=== PATIENT | female | born 1970 | race Caucasian/White ===

== ENCOUNTER 2024-01-03 14:15 | Emergency (ER) | payer MEDICARE, SELFPAY ==
[2024-01-03 14:21] VITALS: BP 138/98
[2024-01-03 15:09] VITALS: BP 111/72
--- NOTE | 2024-01-03 15:20 | ED.GENMED ---
History of Present Illness
General
Chief Complaint: Heart Rate Problem
Source: patient
Exam Limitations: none
Time Seen by Provider: 01/03/24 15:11
Nursing documentation reviewed up to this point in time: agreed with
Travel History
Have you had any contact with someone who has COVID-19?: No
Do you have any symptoms of coronavirus? Fever > 100 degrees, chills, cough, shortness of breath, sore throat, loss of taste or smell, muscle aches, or headache?: No
History of Present Illness
History of Present Illness:
Patient is a 53-year-old female who presents to the ER for evaluation. Patient reports she was at work around 1 PM and is having intermittent sensation of palpitations and fluttering sensation in her chest for about half hour and then she developed
heaviness in her upper chest by her clavicle area and felt short of breath. She report both of her arms felt heavy. 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
very low. She is a smoker. She has no other past medical history. She is presently asymptomatic. She has significant cardiac history, brother had [facility] at age 43. She did see cardiology here Dr. Mackenzie and Dr. Mcgarry. years ago
Past History
Past History
ED Past Medical History: CHF, Psychiatric (panic anxiety syndrome,), Other (RLS, spinal stenosis, rheumatoid arthritis, PNA), Other (toxic shock syndrome, osteoarthritis, suggested CSF leak in 2012) and Other (orthostatic hypotension)
ED Past Surgical History: Cardiac (Linq long-term monitor worker implanted), Cholecystectomy, Gynecological (D&C), Orthopedic (8 Back surgery, Scoliosis, Rods and Fusion), Tonsilectomy and Other (Sinus surgery times 2)
Patient has exhibited threatening behavior?: No
PSI?: No
Social History
Tobacco: Smoker
Alcohol: None
Drug: None
Personal:
Living: with family
Employment: Other
Family History
Family History: Other (Reviewed and Noncontributory)
Review of Systems
Review of Systems
Allergies reviewed?: Yes
All Other Systems: ROS reviewed and negative except as documented in HPI and ROS
Constitutional: Reports no symptoms
Respiratory: Reports no symptoms
Cardiac: Reports no symptoms
ABD/GI: Reports no symptoms
: Reports no symptoms
Musculoskeletal: Reports no symptoms
Skin: Reports no symptoms
Neurological: Reports no symptoms
Hematologic/Lymphatic: Reports no symptoms
Psychiatric: Reports no symptoms
Phy Exam
General Physical Exam
General Presentation: no apparent distress
General age: appears stated age
General Skin: warm and dry
General Habitus: normal
General Mental: alert
General Hydration: appears well hydrated
Cardiovascular Exam
Cardiovascular Exam: regular rate/rhythm
Pulmonary Exam
Pulmonary Exam: lungs clear and no respiratory distress
Course
Orders/Labs/Results
Orders:
Orders
01/03/24 14:16
Electrocardiogram (*1) Urgent
Reason for Study: Palpitations
EKG- Treatment ONCE
01/03/24 15:21
CBC/With Diff [Complete Blood Count/With Diff] Urgent
CMP [Comprehensive Metabolic Panel] Urgent
01/03/24 15:34
Add On- LAB Urgent
Tests Added?: troponin
Chest [CR Chest - 2 Views ] Urgent
Comment:
Reason For Exam: cp
01/03/24 15:44
DDimer [D-Dimer] Urgent
01/03/24 16:12
Troponin I Urgent
Comment: MUST BE COLLECTED - NO ADD ON
01/03/24 16:59
EKG- Treatment ONCE
Abnormal Lab Results
01/03/24
15:21
MCH 31.2 H pg
(27.0-31.0)
01/03/24 15:21
04/25/24 15:21
Vital Signs
Initial and Last Documented VS:
Initial Vital Signs
Temp Pulse Resp BP Pulse Ox
97.6 F 87 18 138/98 98
01/03/24 14:21 01/03/24 14:21 01/03/24 14:21 01/03/24 14:21 01/03/24 14:21
Last Documented Vital Signs
Temp Pulse Resp BP Pulse Ox
97.6 F 64 21 111/77 98
01/03/24 14:21 01/03/24 17:45 01/03/24 17:45 01/03/24 17:22 01/03/24 17:45
MDM/Problems Addressed
Differential Diagnosis Includes:
Not limited to unstable angina, arrhythmia
MDM/Problems Addressed:
Patient is a 53-year-old female with history of smoking presents to the ER for evaluation. Patient was at work and had intermittent palpitations fluttering sensation and then chest pressure collarbone discomfort some shortness of breath. She
presented here awake alert no acute distress symptoms had resolved. Initial cardiac troponin is normal there are no acute findings on EKG and no acute findings on chest x-ray. D-dimer negative. Will keep for second troponin and if negative plan
to discharge home with outpatient cardiology chest pain hotline patient may also need Holter monitor for further evaluation of fluttering/palpitations.
1800: Nurse and now reports that patient does not want to stay for second cardiac troponin as recommended. I did speak with her and with her history of smoking and family history I did recommend this. She wants to go home. I will place patient on
the chest pain hotline. She however has been asymptomatic.
*Radiology
Radiology exam reviewed: radiology read reviewed
*Pulse Oximetry
Patient hypoxic: no
*EKG
Interpreted by ED Provider?: Yes
Comparison EKG: no changes
Heart Rate: 73
Rate: normal
Rhythm: sinus
Ischemia: no ischemia
*Critical Care Note
Total Time (30-74mins, 75-104mins- exclusive of procedures): Not Applicable
ED Attending Note
-
Portions of this chart may have been created with voice recognition software.� Occasional wrong word or��sound alike� substitutions may have occurred due to the inherent limitations of voice recognition software.
Discharge Plan
Departure
Patient Disposition: Home (Routine Discharge)
Date of Disposition: 01/03/24
Time of Disposition: 17:59
Patient with high blood pressure during this ER visit?: Yes
Condition: Fair
Covid-19: Not Applicable
Discharge Problem:
Chest pain
Instructions: Chest Pain DCA Follow Up, BLOOD PRESSURE
Prescriptions:
No Action
pramipexole [Mirapex] 1.5 MG tablet
3 tab PO HS
benzonatate 100 mg capsule
100 mg PO TID PRN (Reason: Cough) Qty: 20 0RF
Referrals:
Paulie Mcgarry DO [Active] -
Jan Durham MD [Family Provider] -
Activity Restrictions/Additional Instructions:
As discussed you are recommended to have a second cardiac enzyme blood test and repeat EKG but did not want to . If you have any worsening of symptoms including chest pain shortness of breath nausea sweating or any further concerns please return to
the ER. Follow-up with cardiology. You are placed on the cardiology hotline which means you should receive a phone call in the next several days however if you do not please give them a call to schedule an appointment soon as possible. You may
need additional testing including holter monitor.
Interventions
Interventions:
*Risk Screen - Suicide Last Done: 01/03/24 14:21
*General Assessment Last Done: 01/03/24 14:21
*Neglect/Abuse Screening Last Done: 01/03/24 14:21
ED- Fall Risk Assessment Last Done: 01/03/24 15:30
*ED COVID-19 Vaccine History Last Done: 01/03/24 14:21
*Nursing Disposition Last Done: 01/03/24 18:09
ED- Cardiac Assessment Last Done: 01/03/24 15:30
ED- Pulmonary Assessment Last Done: 01/03/24 15:30
Discharge Date and Time
Discharge Date/Time: 01/03/24 18:11
Print Language: FRISIAN
[2024-01-03 15:38] LABS: % Basophils 0.5 % (0-2); % Eosinophils 1.1 % (0-6); % Immature Granulocytes 0.2 % (0-0.5); % Lymphocytes 32.5 % (20.5-51.1); % Monocytes 5.3 % (1.7-9.3); % Neutrophils 60.4 % (42.2-75.2); Absolute Eosinophils 0.1 10^3/uL (0-0.7); Absolute Monocytes 0.3 10^3/uL (0.1-0.6); Absolute Neutrophils 3.8 10^3/uL (1.4-6.5); Hematocrit 39.5 % (37.0-47.0); Hemoglobin 13.9 g/dL (12.0-16.0); Mean Corp Hgb Conc. 35.2 g/dL (33.0-37.0); Mean Corpuscular Hgb 31.2 pg (27.0-31.0); Mean Corpuscular Volume 88.6 fL (81.0-99.0); Nucleated Red Blood Cells % 0 %; Platelet Count 245 10^3/uL (130-400); Red Blood Cell Count 4.46 10^6/uL (4.20-5.40); Red Cell Dist. Width 12.1 % (11.5-14.5); White Blood Cell Count 6.2 10^3/uL (4.8-10.8)
[2024-01-03 15:56] LABS: ALT (SGPT) 20 U/L (0-35); AST (SGOT) 25 U/L (14-36); Albumin 4.4 g/dl (3.5-5.0); Alkaline Phosphatase 81 U/L (38-126); Blood Urea Nitrogen 17 mg/dl (7-17); Calcium 9.5 mg/dl (8.4-10.2); Carbon Dioxide 27 mmol/L (22-30); Chloride 104 mmol/L (98-107); Glucose 88 mg/dl (70-99); Potassium 3.6 mmol/L (3.5-5.1); Sodium 136 mmol/L (135-145); Total Protein 6.7 g/dl (6.3-8.2); eGFR > 60.00
[2024-01-03 16:11] LABS: D-Dimer < 0.27 ug/mlFEU (0.00-0.50)
[2024-01-03 16:44] LABS: Troponin I < 0.012 ng/ml
[2024-01-03 17:22] VITALS: BP 111/77
== END 2024-01-03 18:11 | disposition home or self-care (01) ==
LOC: EMR 14:15
PROVIDERS: Nurse Practitioner; EMERGENCY PHYSICIAN Emergency Medicine; FAMILY PHYSICIAN Internal Medicine
DX: R07.89 Other chest pain (principal); R03.0 Elevated blood-pressure reading, without diagnosis of hypertension; F17.200 Nicotine dependence, unspecified, uncomplicated
CPT/HCPCS: 99285; 71046; 80053; 84484; 85025; 85379; 93005

== ENCOUNTER 2024-02-24 07:52 | Emergency (ER) | payer MEDICARE, OTHER, SELFPAY ==
[2024-02-24 07:58] VITALS: BP 129/95
--- NOTE | 2024-02-24 09:25 | ED.MUSCINJ ---
HPI-Injury
General
Chief Complaint: Musculo-Skeletal Complaint
Time Seen by Provider: 02/24/24 09:03
Travel History
Have you had any contact with someone who has COVID-19?: No
Do you have any symptoms of coronavirus? Fever > 100 degrees, chills, cough, shortness of breath, sore throat, loss of taste or smell, muscle aches, or headache?: No
History of Present Illness-Injury
Initial Injury comments:
Patient presents to the emergency department with left hip pain. Pain is anterior worse with weightbearing. Notes that she has a baseline of uneven hips due to chronic back issues. She was lifting a heavy speaker on Sunday, yesterday she noticed
severe pain in the left hip. There is no acute injury. She complains of some weakness in the leg. There is no back pain or radiating pain shooting down the leg. She has no saddle anesthesia or incontinence. There are no fevers or chills.
Past History
Past History
ED Past Medical History: CHF, Psychiatric (panic anxiety syndrome,), Other (RLS, spinal stenosis, rheumatoid arthritis, PNA), Other (toxic shock syndrome, osteoarthritis, suggested CSF leak in 2012) and Other (orthostatic hypotension)
ED Past Surgical History: Cardiac (Linq long-term water valve repairer implanted), Cholecystectomy, Gynecological (D&C), Orthopedic (8 Back surgery, Scoliosis, Rods and Fusion), Tonsilectomy and Other (Sinus surgery times 2)
Patient has exhibited threatening behavior?: No
PSI?: No
Social History
Tobacco: Smoker
Alcohol: None
Drug: None
Personal:
Living: with family
Employment: Other
Family History
Family History: Other (Reviewed and Noncontributory)
Phy Exam
Physical Exam
Physical Exam:
General: No acute distress
Head: NCAT
Neck, Normal in appearance, no swelling
Respiratory: No Respiratory distress
Abdomen: No distension
Back/ext: No back tenderness. Full range of motion of lower extremities. There is no swelling in the lower extremities or visible abnormality. She has pain with range of motion of the left hip. There is diminished strength in the hip flexors on
the left. Sensation is intact throughout. She has good distal pulses. 5 out of 5 plantarflexion and dorsiflexion and knee extension.
Neuro: BARRETT, AOx4
Psych: Normal affect
Skin: Normal color
Injury Course
Orders/Labs/Results
Orders:
Orders
02/24/24 08:02
Hip, Left 2-3 Views [CR Hip - LT w/wo Pel 2-3 Vw*] Urgent
Comment:
Reason For Exam: pain
Include a pelvis x-ray?: Yes
02/24/24 09:28
Naproxen [Naprosyn] 500 mg PO NOW STA
*Critical Care Note
Total Time (30-74mins, 75-104mins- exclusive of procedures): Not Applicable
ED Attending Note
ED Attending Note
ED Attending Note:
Patient with left hip pain after carrying a heavy load. She is neurovascularly intact but does have some weakness to hip flexion on the left suspect there is a component of pain contributing to this. Do not suspect radiculopathy given lack of back
pain or radicular symptoms. Will treat symptomatically, obtain x-rays and reassess.
Patient ambulating without difficulty. Requesting discharge prior to x-ray read. I instructed that I would call her with results.
Updated patient on results, mild osteoarthritis, no fracture
all questions answered
-
Portions of this chart may have been created with voice recognition software.� Occasional wrong word or��sound alike� substitutions may have occurred due to the inherent limitations of voice recognition software.
Discharge Plan
Departure
Patient Disposition: Home (Routine Discharge)
Date of Disposition: 02/24/24
Time of Disposition: 11:17
Patient with high blood pressure during this ER visit?: No
Discharge Problem:
Acute hip pain
Instructions: Hip Pain ED
Prescriptions:
No Action
pramipexole [Mirapex] 1.5 MG tablet
3 tab PO HS
benzonatate 100 mg capsule
100 mg PO TID PRN (Reason: Cough) Qty: 20 0RF
Referrals:
Jan Durham MD [Family Provider] -
Fuad Figueroa MD [Active] -
Activity Restrictions/Additional Instructions:
please follow up with your orthopedist for evaluation
return to ER with new or worsening symptoms
Interventions
Interventions:
*ED COVID-19 Vaccine History Last Done: 02/24/24 07:58
Discharge Date and Time
Print Language: SERBIAN
[2024-02-24] MEDS: NAPROSYN 500 MG PO (10:24)
== END 2024-02-24 11:35 | disposition home or self-care (01) ==
LOC: EMR 07:52
PROVIDERS: EMERGENCY PHYSICIAN Emergency Medicine; FAMILY PHYSICIAN Internal Medicine
DX: M25.552 Pain in left hip (principal); M62.81 Muscle weakness (generalized); X50.0XXA Overexertion from strenuous movement or load, initial encounter; I50.9 Heart failure, unspecified; G25.81 Restless legs syndrome; M48.00 Spinal stenosis, site unspecified; M06.9 Rheumatoid arthritis, unspecified; M41.9 Scoliosis, unspecified; F17.200 Nicotine dependence, unspecified, uncomplicated; Z90.49 Acquired absence of other specified parts of digestive tract; Z98.1 Arthrodesis status; Z88.1 Allergy status to other antibiotic agents; Z88.5 Allergy status to narcotic agent; Z88.8 Allergy status to other drugs, medicaments and biological substances
CPT/HCPCS: 99283; 73502

== ENCOUNTER 2024-04-11 13:44 | Emergency (ER) | payer SELFPAY ==
[2024-04-11 13:48] VITALS: BP 124/84
[2024-04-11 14:01] VITALS: BP 120/75
[2024-04-11 14:03] VITALS: BMI 23.9
--- NOTE | 2024-04-11 14:49 | ED.SKININJ ---
HPI-Injury
General
Chief Complaint: Skin Surface Trauma
Source: patient
Exam Limitations: none
Time Seen by Provider: 04/11/24 14:35
Nursing documentation reviewed up to this point in time: agreed with
History of Present Illness-Injury
Initial Injury comments:
53-year-old female with history of IBS, GERD, anemia, anxiety, numerous orthopedic surgeries for her back and neck presents stating she rescued a cat from a storm drain last night, that it gave order, it was acting normally seemed scared and at 1
point he pawed at her right forearm causing 2 punctures from his nails. Today the two areas are locally red, pt denies pain, fever/chill, denies n/v. Feels well otherwise. A friend told her to come here because 'that can get reallyl bad.'
Past History
Past History
ED Past Medical History: CHF, Psychiatric (panic anxiety syndrome,), Other (RLS, spinal stenosis, rheumatoid arthritis, PNA), Other (toxic shock syndrome, osteoarthritis, suggested CSF leak in 2012) and Other (orthostatic hypotension)
ED Past Surgical History: Cardiac (Linq long-term night monitor implanted), Cholecystectomy, Gynecological (D&C), Orthopedic (8 Back surgery, Scoliosis, Rods and Fusion), Tonsilectomy and Other (Sinus surgery times 2)
Patient has exhibited threatening behavior?: No
PSI?: No
Social History
Tobacco: Smoker
Alcohol: None
Drug: None
Personal:
Living: with family
Employment: Other
Family History
Family History: Other (Reviewed and Noncontributory)
Review of Systems
Review of Systems
Allergies reviewed?: Yes
All Other Systems: ROS reviewed and negative except as documented in HPI and ROS
Constitutional: Denies fever or chills
Musculoskeletal: Reports neck pain (chronic) and back pain (chronic)
Skin: Reports other (2 punctures anterior aspect right forearm from cat's nails)
Phy Exam
Physical Exam
Physical Exam:
PHYSICAL EXAMINATION:
General: no apparent distress, not acutely ill
Neuro: alert and oriented.
Psychiatric: well kept. interactive and cooperative
Musculoskeletal: Moves with ease
Skin: Warm, pink. 2 punctures anterior aspect of right forearm with 5 mm local surrounding erythema. No drainage, no lymphangitis, non tender.
Course
Orders/Labs/Results
Orders:
Orders
04/11/24 14:02
Electrocardiogram (*1) Urgent
Reason for Study: Other
Other Reason for Exam: palpitations
04/11/24 14:03
EKG- Treatment ONCE
04/11/24 14:48
Tetanus/Diphth/Acelpertussis [Adacel] 0.5 ml IM .ONCE ONE
Vital Signs
Initial and Last Documented VS:
Initial Vital Signs
Temp Pulse Resp BP Pulse Ox
98.1 F 76 17 124/84 99
04/11/24 13:48 04/11/24 13:48 04/11/24 13:48 04/11/24 13:48 04/11/24 13:48
Last Documented Vital Signs
Temp Pulse Resp BP Pulse Ox
98.1 F 70 15 120/75 99
04/11/24 13:48 04/11/24 14:01 04/11/24 14:01 04/11/24 14:01 04/11/24 14:01
MDM/Problems Addressed
MDM/Problems Addressed:
53-year-old female with history of IBS, GERD, anemia, anxiety, numerous orthopedic surgeries for her back and neck presents stating she rescued a cat from a storm drain last night, that it gave order, it was acting normally seemed scared and at 1
point he pawed at her right forearm causing 2 punctures from his nails. Today the two areas are locally red, pt denies pain, fever/chill, denies n/v. Feels well otherwise. A friend told her to come here because 'that can get really bad.'
Took cat to vet to see if chipped but it wasn't.
No sign of cellulitis or infection
Plan: will give written rx for Augmentin, discussed reasons to start the antibiotic
Cat is in cage at pt's home, has been acting normally and and will be observed for next 10 days. No indication for rabies immunization at this time
*Critical Care Note
Total Time (30-74mins, 75-104mins- exclusive of procedures): Not Applicable
ED Attending Note
-
Portions of this chart may have been created with voice recognition software.� Occasional wrong word or��sound alike� substitutions may have occurred due to the inherent limitations of voice recognition software.
Discharge Plan
Departure
Patient Disposition: Home (Routine Discharge)
Date of Disposition: 04/11/24
Time of Disposition: 15:08
Patient with high blood pressure during this ER visit?: No
Condition: Good
Discharge Problem:
Cat scratch of right forearm, Puncture wound of right forearm
Instructions: Puncture Wound
Prescriptions:
New
amoxicillin-pot clavulanate 875-125 mg tablet
1 tab PO BID Qty: 14 0RF
No Action
pramipexole [Mirapex] 1.5 MG tablet
3 tab PO HS
benzonatate 100 mg capsule
100 mg PO TID PRN (Reason: Cough) Qty: 20 0RF
Referrals:
Jan Durham MD [Family Provider] - As needed
Activity Restrictions/Additional Instructions:
As we discussed, start the antibiotic if you notice increasing redness, swelling, pain, pus drainage, red streak up the arm.
Be sure the cat is observed over the next 10 days and if he is alive and well at that time there is no need for rabies immunization.
Return here immediately for rabies immunization if the cat appears sick or does not survive the next 10 days.
Interventions
Interventions:
*Risk Screen - Suicide Last Done: 04/11/24 13:49
*General Assessment Last Done: 04/11/24 13:49
*Neglect/Abuse Screening Last Done: 04/11/24 13:49
*ED COVID-19 Vaccine History Last Done: 04/11/24 13:49
*Nursing Disposition Last Done: 04/11/24 16:00
ED-Skin Assessment Last Done: 04/11/24 14:04
Discharge Date and Time
Discharge Date/Time: 04/11/24 16:00
Print Language: CYMRO
[2024-04-11] MEDS: ADACEL 0.5 ML IM (15:43)
== END 2024-04-11 16:00 | disposition home or self-care (01) ==
LOC: EMR 13:44
PROVIDERS: EMERGENCY PHYSICIAN Student in an Organized Health Care Education/Training Program; FAMILY PHYSICIAN Internal Medicine
DX: S51.831A Puncture wound without foreign body of right forearm, initial encounter (principal); W55.03XA Scratched by cat, initial encounter; Z23 Encounter for immunization; I50.9 Heart failure, unspecified; F41.9 Anxiety disorder, unspecified; K21.9 Gastro-esophageal reflux disease without esophagitis; G25.81 Restless legs syndrome; M48.00 Spinal stenosis, site unspecified; M06.9 Rheumatoid arthritis, unspecified; M19.90 Unspecified osteoarthritis, unspecified site; K58.9 Irritable bowel syndrome, unspecified; M41.9 Scoliosis, unspecified; F17.200 Nicotine dependence, unspecified, uncomplicated; Z90.49 Acquired absence of other specified parts of digestive tract
CPT/HCPCS: 99283; 90471; 90715; 93005

== ENCOUNTER 2024-06-02 18:56 | Emergency (ER) | payer BC, SELFPAY ==
[2024-06-02 18:57] VITALS: BP 143/96
--- NOTE | 2024-06-02 19:39 | ED.GENMED ---
History of Present Illness
General
Chief Complaint: Allergic Reaction
Source: patient
Exam Limitations: none
Time Seen by Provider: 06/02/24 19:25
Nursing documentation reviewed up to this point in time: agreed with
History of Present Illness
History of Present Illness:
Patient states she ate shrimp last PM and today developed hives. SHe had a similar event 2 year ago after eating shrimp but states the hives were so bad that she was admitted to [facility] for 1 week, Brought self to ED today. has taken 3 doses of
benadryl without improvement. Denies any difficulty breathing or swallowing. No n/v
Past History
Past History
ED Past Medical History: CHF, Psychiatric (panic anxiety syndrome,), Other (RLS, spinal stenosis, rheumatoid arthritis, PNA), Other (toxic shock syndrome, osteoarthritis, suggested CSF leak in 2012) and Other (orthostatic hypotension)
ED Past Surgical History: Cardiac (Linq long-term divemaster implanted), Cholecystectomy, Gynecological (D&C), Orthopedic (8 Back surgery, Scoliosis, Rods and Fusion), Tonsilectomy and Other (Sinus surgery times 2)
Patient has exhibited threatening behavior?: No
PSI?: No
Social History
Tobacco: Smoker
Alcohol: None
Drug: None
Personal:
Living: with family
Employment: Other
Family History
Family History: Other (Reviewed and Noncontributory)
Review of Systems
Review of Systems
Allergies reviewed?: Yes
All Other Systems: ROS reviewed and negative except as documented in HPI and ROS
Constitutional: Reports no symptoms
EENT: Reports no symptoms
Respiratory: Reports no symptoms
Cardiac: Reports no symptoms
ABD/GI: Reports no symptoms
: Reports no symptoms
Musculoskeletal: Reports no symptoms
Skin: Reports other (hives to face, arms, legs)
Neurological: Reports no symptoms
Psychiatric: Reports no symptoms
Phy Exam
General Physical Exam
General Presentation: well appearing and no apparent distress
General age: appears stated age
General Skin: warm and dry
General Habitus: normal
General Mental: alert
General Hydration: appears well hydrated
ENT Exam
ENT Exam: pharynx normal
Cardiovascular Exam
Cardiovascular Exam: regular rate/rhythm and no edema
Pulmonary Exam
Pulmonary Exam: lungs clear and no respiratory distress
Musculoskeletal Exam
Musculoskeletal Exam: full ROM and no edema
Skin Exam
Skin Exam: normal color, warm/dry and other (Scattered small hives to arms, legs, face)
Psychiatric Exam
Psychiatric Exam: normal mood/affect
Course
Orders/Labs/Results
Orders:
Orders
06/02/24 19:35
Dexamethasone Pf [Decadron] 10 mg PO NOW STA
Vital Signs
Initial and Last Documented VS:
Initial Vital Signs
Temp Pulse Resp BP Pulse Ox
98.1 F 84 18 143/96 98
06/02/24 18:57 06/02/24 18:57 06/02/24 18:57 06/02/24 18:57 06/02/24 18:57
Last Documented Vital Signs
Temp Pulse Resp BP Pulse Ox
98.1 F 84 18 143/96 98
06/02/24 18:57 06/02/24 18:57 06/02/24 18:57 06/02/24 18:57 06/02/24 18:57
*Critical Care Note
Total Time (30-74mins, 75-104mins- exclusive of procedures): Not Applicable
ED Attending Note
-
Portions of this chart may have been created with voice recognition software.� Occasional wrong word or��sound alike� substitutions may have occurred due to the inherent limitations of voice recognition software.
Discharge Plan
Departure
Patient Disposition: Home (Routine Discharge)
Date of Disposition: 06/02/24
Time of Disposition: 19:36
Patient with high blood pressure during this ER visit?: No
Condition: Good
Covid-19: Not Applicable
Discharge Problem:
Shrimp allergy
Instructions: Food allergy, Hives (DC)
Prescriptions:
New
prednisone 10 mg Tablet
See Rx Instructions .ROUTE .COMPLEX Qty: 30 0RF
Rx Instructions:
Take By Mouth:
40 mg daily x3 days, 30 mg daily x3 days,
20 mg daily x3 days, 10 mg daily x3 days.
No Action
pramipexole [Mirapex] 1.5 MG tablet
3 tab PO HS
benzonatate 100 mg capsule
100 mg PO TID PRN (Reason: Cough) Qty: 20 0RF
amoxicillin-pot clavulanate 875-125 mg tablet
1 tab PO BID Qty: 14 0RF
Activity Restrictions/Additional Instructions:
Follow up with your family doctor. Return to the emergency department immediately for fever/chills, any difficulty breathing or swallowing, vomiting, or for any further concerns.
Interventions
Interventions:
*General Assessment Last Done: 06/02/24 18:57
*Neglect/Abuse Screening Last Done: 06/02/24 18:57
Discharge Date and Time
Print Language: KOREAN
[2024-06-02] MEDS: DECADRON 10 MG PO (19:56)
[2024-06-02 20:20] VITALS: BP 134/91
== END 2024-06-02 20:20 | disposition home or self-care (01) ==
LOC: EMR 18:56
PROVIDERS: EMERGENCY PHYSICIAN Emergency Medicine; FAMILY PHYSICIAN Internal Medicine
DX: L50.0 Allergic urticaria (principal); L29.9 Pruritus, unspecified; I50.9 Heart failure, unspecified; G25.81 Restless legs syndrome; M06.9 Rheumatoid arthritis, unspecified; F41.9 Anxiety disorder, unspecified; F41.0 Panic disorder [episodic paroxysmal anxiety]; M19.90 Unspecified osteoarthritis, unspecified site; K21.9 Gastro-esophageal reflux disease without esophagitis; K58.9 Irritable bowel syndrome, unspecified; F17.200 Nicotine dependence, unspecified, uncomplicated; M48.00 Spinal stenosis, site unspecified; M41.9 Scoliosis, unspecified; Z86.16 Personal history of COVID-19; Z90.49 Acquired absence of other specified parts of digestive tract; Z98.1 Arthrodesis status; Z91.013 Allergy to seafood; Z88.1 Allergy status to other antibiotic agents; Z88.5 Allergy status to narcotic agent; Z88.8 Allergy status to other drugs, medicaments and biological substances
CPT/HCPCS: 99283

== ENCOUNTER 2024-09-11 01:49 | Emergency (ER) | payer SELFPAY ==
[2024-09-11 01:52] VITALS: BP 138/80
[2024-09-11 02:21] LABS: COVID-19 Antigen Negative (Negative)
--- NOTE | 2024-09-11 05:32 | ED.GENMED ---
History of Present Illness
General
Chief Complaint: Cold/Flu/URI Symptoms
Source: patient
Exam Limitations: none
Time Seen by Provider: 09/11/24 05:19
Nursing documentation reviewed up to this point in time: agreed with
History of Present Illness
History of Present Illness:
54-year-old female presents emergency room complaining of sore throat, cough, and worse cough when she takes a deep breath. 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 She denies any chest pain.
Past History
Past History
ED Past Medical History: CHF, Psychiatric (panic anxiety syndrome,), Other (RLS, spinal stenosis, rheumatoid arthritis, PNA), Other (toxic shock syndrome, osteoarthritis, suggested CSF leak in 2012) and Other (orthostatic hypotension)
ED Past Surgical History: Cardiac ([employer] long-term cardiac specialist implanted), Cholecystectomy, Gynecological (D&C), Orthopedic (8 Back surgery, Scoliosis, Rods and Fusion), Tonsilectomy and Other (Sinus surgery times 2)
Patient has exhibited threatening behavior?: No
PSI?: No
Social History
Tobacco: Smoker
Alcohol: None
Drug: None
Personal:
Living: with family
Employment: Other
Family History
Family History: Other (Reviewed and Noncontributory)
Review of Systems
Review of Systems
Allergies reviewed?: Yes
All Other Systems: Not applicable
Constitutional: Reports no symptoms
EENT: Reports no symptoms
Respiratory: Reports cough and trouble breathing
Cardiac: Reports no symptoms
ABD/GI: Reports no symptoms
: Reports no symptoms
Musculoskeletal: Reports no symptoms
Skin: Reports no symptoms
Neurological: Reports no symptoms
Endocrine: Reports no symptoms
Hematologic/Lymphatic: Reports no symptoms
Psychiatric: Reports no symptoms
Phy Exam
Physical Exam
Physical Exam:
Physical Exam
General: no apparent distress, not acutely ill
Neck: supple. no meningeal signs. normal posterior pharynx
Heart: s1/s2 regular rate and rhythm, no murmur. equal radial
pulses.
HEENT: Pupils equal round reactive to light, EOMI
Lungs: no acute respiratory distress. clear bilaterally, cough
Abdomen: normal bowel sounds. not tender. no CVAT
Neuro: alert and oriented. no focal neurological deficits cranial nerves II through XII intact
Skin: no rash
Psychiatric: well kept. interactive and cooperative
Extremities: no edema. no calf tenderness. negative homans. good distal pulses
Course
Orders/Labs/Results
Orders:
Orders
09/11/24 01:59
COVID-19 Antigen Urgent
Source: Nasal Swab
Influenza A+B Rapid Molecular Urgent
CHARBEL Source: Nasal Swab
Specimen Description:
Date Specimen was Collected: 09/11/24
Time Specimen was Collected: 01:56
Rapid Strep Group A Urgent
CHARBEL Source: Throat/Pharynx
Specimen Description:
Date Specimen was Collected: 09/11/24
Time Specimen was Collected: 01:56
09/11/24 04:46
Chest [CR Chest - 2 Views ] Urgent
Comment:
Reason For Exam: persistant cough and fever
09/11/24 05:32
Ipratropium/Albuterol Sulfate [Duoneb] 3 ml INH R NOW STA
Vital Signs
Initial and Last Documented VS:
Initial Vital Signs
Temp Pulse BP Pulse Ox
98.1 F 72 138/80 98
09/11/24 01:52 09/11/24 01:52 09/11/24 01:52 09/11/24 01:52
Last Documented Vital Signs
Temp Pulse BP Pulse Ox
98.1 F 72 138/80 98
09/11/24 01:52 09/11/24 01:52 09/11/24 01:52 09/11/24 01:52
MDM/Problems Addressed
Differential Diagnosis Includes:
Pneumonia, COVID, strep, flu
MDM/Problems Addressed:
54-year-old female with viral URI versus mild bronchitis. No signs of pneumonia. Normal chest x-ray. Stable for discharge. Albuterol inhaler prescribed.
*Radiology
Radiology exam reviewed: preliminary read by ED provider (Chest x-ray no acute findings)
*Pulse Oximetry
Patient hypoxic: no
*Critical Care Note
Total Time (30-74mins, 75-104mins- exclusive of procedures): Not Applicable
Data Reviewed
Further Testing Considered But Not Given:
CT chest and labs not indicated
ED Attending Note
-
Portions of this chart may have been created with voice recognition software.� Occasional wrong word or��sound alike� substitutions may have occurred due to the inherent limitations of voice recognition software.
Discharge Plan
Departure
Patient Disposition: Home (Routine Discharge)
Date of Disposition: 09/11/24
Time of Disposition: 05:35
Patient with high blood pressure during this ER visit?: Yes
Condition: Good
Discharge Problem:
Acute bronchitis
Instructions: Acute Bronchitis, Adult (DC), Viral Upper Respiratory Infection, Adult (DC), BLOOD PRESSURE
Prescriptions:
New
albuterol sulfate 90 mcg/actuation HFA aerosol inhaler
2 puff inhalation Q4H PRN (Reason: shortness of breath or wheezing) Qty: 8.5 0RF
No Action
pramipexole [Mirapex] 1.5 MG tablet
3 tab PO HS
benzonatate 100 mg capsule
100 mg PO TID PRN (Reason: Cough) Qty: 20 0RF
amoxicillin-pot clavulanate 875-125 mg tablet
1 tab PO BID Qty: 14 0RF
prednisone 10 mg Tablet
See Rx Instructions .ROUTE .COMPLEX Qty: 30 0RF
Rx Instructions:
Take By Mouth:
40 mg daily x3 days, 30 mg daily x3 days,
20 mg daily x3 days, 10 mg daily x3 days.
Interventions
Interventions:
*Risk Screen - Suicide Last Done: 09/11/24 01:52
*General Assessment Last Done: 09/11/24 01:52
*Neglect/Abuse Screening Last Done: 09/11/24 01:52
*ED COVID-19 Vaccine History Last Done: 09/11/24 01:52
Discharge Date and Time
Print Language: UKRAINIAN
[2024-09-11 05:35] VITALS: BMI 24.9
[2024-09-11 05:42] VITALS: BP 104/72
[2024-09-11] MEDS: DUONEB 3 ML INH (05:47)
[2024-09-11 06:40] VITALS: BP 106/52
== END 2024-09-11 06:40 | disposition home or self-care (01) ==
LOC: EMR 01:49
PROVIDERS: EMERGENCY PHYSICIAN Emergency Medicine; FAMILY PHYSICIAN Internal Medicine
DX: J20.9 Acute bronchitis, unspecified (principal); Z11.52 Encounter for screening for COVID-19; Z20.822 Contact with and (suspected) exposure to COVID-19; Z20.828 Contact with and (suspected) exposure to other viral communicable diseases; I50.9 Heart failure, unspecified; G25.81 Restless legs syndrome; M06.9 Rheumatoid arthritis, unspecified; F41.9 Anxiety disorder, unspecified; M48.00 Spinal stenosis, site unspecified; M41.9 Scoliosis, unspecified; K21.9 Gastro-esophageal reflux disease without esophagitis; F17.200 Nicotine dependence, unspecified, uncomplicated; K58.9 Irritable bowel syndrome, unspecified; Z98.1 Arthrodesis status; Z87.01 Personal history of pneumonia (recurrent); Z86.16 Personal history of COVID-19
CPT/HCPCS: 99283; 94640; 71046; 87070; 87502; 87811; 87880

== ENCOUNTER 2025-01-18 11:11 | Emergency (ER) | payer OTHER, SELFPAY ==
[2025-01-18 11:15] VITALS: BP 140/95
--- NOTE | 2025-01-18 12:24 | ED.GENMED ---
History of Present Illness
General
Chief Complaint: Headache
Time Seen by Provider: 01/18/25 12:06
History of Present Illness
History of Present Illness:
52 female with history of hypertension presents to the emergency department for evaluation of an intractable headache for the past month or more. Describes a right temporal pain that radiates to the right occiput, constant discomfort with no
provoking or palliating factors. No relief with [id number] medications. Denies vision changes, diplopia, neck pain, extremity paresthesias, chest pain, or shortness of breath. No night sweats or weight loss. No nausea or vomiting.
Past History
Past History
ED Past Medical History: CHF, Psychiatric (panic anxiety syndrome,), Other (RLS, spinal stenosis, rheumatoid arthritis, PNA), Other (toxic shock syndrome, osteoarthritis, suggested CSF leak in 2012) and Other (orthostatic hypotension)
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
Patient has exhibited threatening behavior?: No
PSI?: No
Social History
Tobacco: Smoker
Alcohol: None
Drug: None
Personal:
Living: with family
Employment: Other
Family History
Family History: Other (Reviewed and Noncontributory)
Review of Systems
Review of Systems
Allergies reviewed?: Yes
All Other Systems: ROS reviewed and negative except as documented in HPI and ROS
Phy Exam
Physical Exam
Physical Exam:
GEN: Well appearing, NAD, WDWN
HEENT: Oral mucosa moist, no scleral icterus, no nasal congestion. No temporal artery tenderness reproduced
Cardiac: Regular rate
Lung: No respiratory distress, no tachypnea
MSK: No gross deformity or injuries
Skin: Good color, no pallor or jaundice, no rashes
Neuro: AO x3; CN II-XII grossly intact. BUE strength 5/5 in all velazquez, sensation intact and symmetric. BLE strength 5/5 in all velazquez, sensation intact and symmetric, [id number] and [id number] normal, gait is steady
Psych: Calm, cooperative
Course
Orders/Labs/Results
Orders:
Orders
01/18/25 12:18
CT Head W/o Iv Contrast Urgent
Comment:
Reason For Exam: headache
Ketorolac [Toradol] 15 mg IV NOW STA
Magnesium Sulfate 2 Gram/50 ml [Magnesium Sulfate] 2 gram in 50 ml IV NOW
Metoclopramide [Reglan] 10 mg IV NOW STA
01/18/25 12:32
Basic Metabolic Panel Urgent
CRP [C-Reactive Protein] Urgent
Complete Blood Count/No Diff Urgent
Abnormal Lab Results
01/18/25
12:32
Chloride 108 H mmol/L
(98-107)
01/18/25 12:32
01/18/25 12:32
Vital Signs
Initial and Last Documented VS:
Initial Vital Signs
Temp Pulse Resp BP Pulse Ox
98.1 F 82 18 140/95 100
01/18/25 11:15 01/18/25 11:15 01/18/25 11:15 01/18/25 11:15 01/18/25 11:15
Last Documented Vital Signs
Temp Pulse Resp BP Pulse Ox
98.1 F 78 20 122/68 98
01/18/25 11:15 01/18/25 14:00 01/18/25 14:00 01/18/25 14:00 01/18/25 14:00
MDM/Problems Addressed
MDM/Problems Addressed:
CT of the head was obtained due to persistence of the headache lasting more than 1 month despite her lack of neurologic symptoms. CT was unremarkable. She was treated with migraine cocktail with resolution of symptoms. Further supportive care
discussed
*Critical Care Note
Total Time (30-74mins, 75-104mins- exclusive of procedures): Not Applicable
ED Attending Note
-
Portions of this chart may have been created with voice recognition software.� Occasional wrong word or��sound alike� substitutions may have occurred due to the inherent limitations of voice recognition software.
Discharge Plan
Departure
Patient Disposition: Home (Routine Discharge)
Date of Disposition: 01/18/25
Time of Disposition: 14:08
Patient with high blood pressure during this ER visit?: No
Discharge Problem:
Migraine
Instructions: Migraines (DC)
Prescriptions:
New
sumatriptan succinate [Imitrex] 50 mg tablet
50 - 100 mg PO ONCE Qty: 10 0RF
No Action
pramipexole [Mirapex] 1.5 MG tablet
3 tab PO HS
benzonatate 100 mg capsule
100 mg PO TID PRN (Reason: Cough) Qty: 20 0RF
amoxicillin-pot clavulanate 875-125 mg tablet
1 tab PO BID Qty: 14 0RF
prednisone 10 mg Tablet
See Rx Instructions .ROUTE .COMPLEX Qty: 30 0RF
Rx Instructions:
Take By Mouth:
40 mg daily x3 days, 30 mg daily x3 days,
20 mg daily x3 days, 10 mg daily x3 days.
albuterol sulfate 90 mcg/actuation HFA aerosol inhaler
2 puff inhalation Q4H PRN (Reason: shortness of breath or wheezing) Qty: 8.5 0RF
Interventions
Interventions:
*Risk Screen - Suicide Last Done: 01/18/25 11:15
*General Assessment Last Done: 01/18/25 11:15
*Neglect/Abuse Screening Last Done: 01/18/25 11:15
*Nursing Disposition Last Done: 01/18/25 14:33
ED- Neurological Assessment Last Done: 01/18/25 14:11
Discharge Date and Time
Discharge Date/Time: 01/18/25 14:34
Print Language: SURINAMESE
[2025-01-18] MEDS: TORADOL 15 MG IV (12:33)
[2025-01-18] MEDS: REGLAN 10 MG IV (12:37)
[2025-01-18] MEDS: MAGNESIUM SULFATE 50 IV (12:49)
[2025-01-18 12:50] LABS: Hematocrit 40.9 % (37.0-47.0); Hemoglobin 14.5 g/dL (12.0-16.0); Mean Corp Hgb Conc. 35.5 g/dL (33.0-37.0); Mean Corpuscular Hgb 30.9 pg (27.0-31.0); Mean Platelet Volume 9.1 fL (7.4-10.4); Platelet Count 245 10^3/uL (130-400); Red Cell Dist. Width 12.2 % (11.5-14.5)
[2025-01-18 13:02] LABS: Blood Urea Nitrogen 10 mg/dl (7-17); Calcium 8.9 mg/dl (8.4-10.2); Carbon Dioxide 28 mmol/L (22-30); Chloride 108 mmol/L (98-107); Glucose 91 mg/dl (70-99); Sodium 140 mmol/L (135-145); eGFR > 60.00
[2025-01-18 13:05] LABS: C-Reactive Protein < 5.00 mg/L (0.0-10.00)
[2025-01-18 14:00] VITALS: BP 122/68
== END 2025-01-18 14:34 | disposition home or self-care (01) ==
LOC: EMR 11:11
PROVIDERS: Physician Assistant; EMERGENCY PHYSICIAN Emergency Medicine; FAMILY PHYSICIAN Internal Medicine
DX: G43.909 Migraine, unspecified, not intractable, without status migrainosus (principal); I11.0 Hypertensive heart disease with heart failure; I50.9 Heart failure, unspecified; F41.0 Panic disorder [episodic paroxysmal anxiety]; F41.9 Anxiety disorder, unspecified; M06.9 Rheumatoid arthritis, unspecified; M41.9 Scoliosis, unspecified; A48.3 Toxic shock syndrome; G25.81 Restless legs syndrome; F17.200 Nicotine dependence, unspecified, uncomplicated; Z87.01 Personal history of pneumonia (recurrent); Z90.49 Acquired absence of other specified parts of digestive tract; Z88.7 Allergy status to serum and vaccine; Z88.8 Allergy status to other drugs, medicaments and biological substances; Z88.1 Allergy status to other antibiotic agents; Z88.5 Allergy status to narcotic agent; Z91.013 Allergy to seafood
CPT/HCPCS: 99284; 96365; 96375 ×2; 70450; 80048; 85027; 86140

== ENCOUNTER 2025-04-26 19:50 | Emergency (ER) | payer SELFPAY ==
[2025-04-26 20:02] VITALS: BP 127/88
[2025-04-26 20:31] VITALS: BP 122/79
[2025-04-26 20:31] LABS: Hematocrit 37.4 % (37.0-47.0); Hemoglobin 13.0 g/dL (12.0-16.0); Mean Corp Hgb Conc. 34.8 g/dL (33.0-37.0); Mean Corpuscular Volume 87.6 fL (81.0-99.0); Nucleated Red Blood Cells % 0 %; Platelet Count 244 10^3/uL (130-400); Red Cell Dist. Width 12.0 % (11.5-14.5)
[2025-04-26 20:44] LABS: COVID-19 Antigen Negative (Negative)
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
[2025-04-26 20:59] LABS: Troponin I < 0.012 ng/ml
[2025-04-26 21:11] LABS: ALT (SGPT) 18 U/L (0-35); AST (SGOT) 19 U/L (14-36); Albumin 4.1 g/dl (3.5-5.0); Alkaline Phosphatase 58 U/L (38-126); Blood Urea Nitrogen 18 mg/dl (7-17); Calcium 9.0 mg/dl (8.4-10.2); Carbon Dioxide 28 mmol/L (22-30); Chloride 107 mmol/L (98-107); Glucose 106 mg/dl (70-99); Potassium 3.9 mmol/L (3.5-5.1); Sodium 140 mmol/L (135-145); Total Protein 6.4 g/dl (6.3-8.2); eGFR > 60.00
== END 2025-04-26 20:54 ==
LOC: EMR 19:50
PROVIDERS: Student in an Organized Health Care Education/Training Program
DX: Z53.21 Procedure and treatment not carried out due to patient leaving prior to being seen by health care provider (principal)
CPT/HCPCS: 80053; 84484; 85025; 87811; 93005

== ENCOUNTER 2025-05-03 02:27 | Emergency (ER) | payer SELFPAY ==
[2025-05-03 02:33] VITALS: BP 138/84
[2025-05-03 02:52] VITALS: BMI 25.6
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
== END 2025-05-03 03:42 ==
LOC: EMR 02:27
DX: M54.2 Cervicalgia (principal); Z53.21 Procedure and treatment not carried out due to patient leaving prior to being seen by health care provider
CPT/HCPCS: 99281

== ENCOUNTER → 2025-08-15 08:53 | Outpatient (REF) | payer OTHER, SELFPAY | LOC: RAD 08:53 | PROVIDERS: ATTENDING PHYSICIAN Nurse Practitioner; FAMILY PHYSICIAN Internal Medicine | DX: J06.9 Acute upper respiratory infection, unspecified (principal) | CPT/HCPCS: 71046 ==